=== PATIENT | male | born 1950 | race Caucasian/White ===

== ENCOUNTER 2023-02-26 18:42 | Emergency (ER) | payer MEDICARE, OTHER ==
[~2023-02-26] VITALS: Ht 190.5 cm; Wt 85.7 kg
[~2023-02-26 18:42] MED LIST: AMIODARONE HCL200 MG GT; ASPIRIN81 MG GT; FOSFOMYCIN TROME3 GM; HYDROCODON-ACE1 EA12 GT; KEPPRA100 MG/1 M GT; METHOCARBAMOL500 MG GT; TRAZODONE HCL50 MG GT; TYLENOL325 MG GT
[2023-02-26 19:14] VITALS: O2SAT 100
== END 2023-02-26 23:15 | disposition home or self-care (01) ==
LOC: ER 18:53
DX: Z46.6 Encounter for fitting and adjustment of urinary device (principal); R33.9 Retention of urine, unspecified; E11.9 Type 2 diabetes mellitus without complications; J44.9 Chronic obstructive pulmonary disease, unspecified; I50.9 Heart failure, unspecified; G40.909 Epilepsy, unspecified, not intractable, without status epilepticus; F32.A Depression, unspecified; K21.9 Gastro-esophageal reflux disease without esophagitis; Z86.73 Personal history of transient ischemic attack (TIA), and cerebral infarction without residual deficits
CPT/HCPCS: 87086; 87186; 99283

== ENCOUNTER 2023-06-20 17:26 | Emergency (ER) | payer MEDICARE ==
[~2023-06-20] VITALS: Ht 190.5 cm; Wt 85.7 kg
[2023-06-20] MEDS ORDERED: CEFDINIR250 MG/5 M PO (18:03)
[2023-06-20] MEDS ORDERED: CIPRO500 MG/5 M PO (18:04)
[2023-06-20] MEDS ORDERED: OXYBUTYNIN5 MG/5 ML PEG (18:05)
[2023-06-20] MEDS ORDERED: CIPRO500 MG/5 M PEG (18:06)
[2023-06-20] MEDS ORDERED: CEFDINIR250 MG/5 M PEG (18:06)
[2023-06-20 20:12] VITALS: BP 102/75; PULSE 79; RESP 19; TEMP 98
[2023-06-20 20:34] VITALS: O2SAT 94
== END 2023-06-20 20:51 ==
LOC: ER 17:33
DX: T83.89XA Other specified complication of genitourinary prosthetic devices, implants and grafts, initial encounter (principal); N39.0 Urinary tract infection, site not specified; E11.9 Type 2 diabetes mellitus without complications; J44.9 Chronic obstructive pulmonary disease, unspecified; I50.9 Heart failure, unspecified; G40.909 Epilepsy, unspecified, not intractable, without status epilepticus; K21.9 Gastro-esophageal reflux disease without esophagitis; F32.A Depression, unspecified; I69.322 Dysarthria following cerebral infarction; I69.391 Dysphagia following cerebral infarction
CPT/HCPCS: 99282

== ENCOUNTER 2023-11-28 19:04 | Emergency (ER) | payer MEDICARE, OTHER ==
[~2023-11-28] VITALS: Ht 190.5 cm; Wt 85.7 kg
[~2023-11-28 19:04] MED LIST changes: +CEFDINIR250 MG/5 M PEG; +CEFDINIR250 MG/5 M PO; +CIPRO500 MG/5 M PEG; +CIPRO500 MG/5 M PO; +OXYBUTYNIN5 MG/5 ML PEG
[2023-11-28 19:09] VITALS: PULSE 86; RESP 15; TEMP 97.8
[2023-11-28 21:05] VITALS: BP 110/85; PULSE 78; RESP 16; O2SAT 96
== END 2023-11-28 20:50 | disposition home or self-care (01) ==
LOC: ER 19:15
DX: Z46.6 Encounter for fitting and adjustment of urinary device (principal); R31.9 Hematuria, unspecified; R62.7 Adult failure to thrive; J44.9 Chronic obstructive pulmonary disease, unspecified; I50.9 Heart failure, unspecified; G40.909 Epilepsy, unspecified, not intractable, without status epilepticus; K21.9 Gastro-esophageal reflux disease without esophagitis; F32.A Depression, unspecified; N31.8 Other neuromuscular dysfunction of bladder; Z86.73 Personal history of transient ischemic attack (TIA), and cerebral infarction without residual deficits
CPT/HCPCS: 99282

== ENCOUNTER 2023-12-02 21:35 | Inpatient (IN) | payer MEDICARE, OTHER ==
[~2023-12-02] VITALS: Ht 190.5 cm; Wt 85.7 kg
[2023-12-02 22:03] VITALS: PULSE 71; RESP 18; O2SAT 98
[2023-12-02 22:06] VITALS: PULSE 82; RESP 20; TEMP 98.7
[2023-12-02 22:24] LABS: BASOPHILS # (AUTO) 0.1 (0.0-0.1); BASOPHILS % 0.5 % (0.0-1.0); EOSINOPHILS # (AUTO) 0.3 (0.0-0.4); EOSINOPHILS % 2.5 % (0.0-6.0); HEMATOCRIT 45.5 % (38.2-49.6); HEMOGLOBIN 14.3 g/dL (14.0-18.0); LYMPHOCYTES # (AUTO) 3.1 (1.0-3.2); LYMPHOCYTES % 30.4 % (18.0-39.1); MEAN CORPUSCULAR HEMOGLOBIN 31.7 pg (28-32); MEAN CORPUSCULAR HGB CONC 31.4 g/dL (31-35); MEAN CORPUSCULAR VOLUME 100.9 fL (81-99); MONOCYTES # (AUTO) 0.7 (0.2-0.8); MONOCYTES % 7.2 % (4.4-11.3); NEUTROPHILS % 59.2 % (38.7-80.0); PLATELET COUNT 250 x10e3/uL (140-360); RED BLOOD COUNT 4.51 x10e6/uL (4.3-5.7); RED CELL DISTRIBUTION WIDTH 13.4 % (11.7-14.4); WHITE BLOOD COUNT 10.08 x10e3/uL (4.8-10.8)
[2023-12-02] MEDS ORDERED: ONDANSETRON HCL INJ 2MG/ML 2ML 2 MG/ML VIAL IV PRN (22:30)
[2023-12-02] MEDS ORDERED: DEXTROSE 50% SYRINGE 50 ML IV PRN (22:30)
[2023-12-02 22:36] LABS: ANION GAP 11.5 mmol/L (8-16); CALCIUM 9.8 mg/dL (8.4-10.2); CREATININE, SERUM 0.68 mg/dL (0.72-1.25); POTASSIUM 4.5 mmol/L (3.5-5.1)
[2023-12-02 23:26] VITALS: BP 117/78; PULSE 64; RESP 18; TEMP 99.2; O2SAT 99
[2023-12-03] VITALS (9 sets, daily range): BP systolic 109–124; BP diastolic 54–78; PULSE 63–78; RESP 18–20; TEMP 97.5–99.2; O2SAT 95–100
[2023-12-03] MEDS: SODIUM CHLORIDE 0.9% 1000ML 1,000 ML IV ONE (00:03)
[2023-12-03] MEDS ORDERED: IPRATROPIU0.2 MG/1 M INH (01:04)
[2023-12-03] MEDS ORDERED: ONDANSETRON ODT4 MG GT (01:04)
[2023-12-03] MEDS ORDERED: POLYETHYLENE GL17 GM GT (01:04)
[2023-12-03] MEDS ORDERED: FAMOTIDINE20 MG GT (01:04)
[2023-12-03] MEDS ORDERED: NEURONTIN100 MG GT (01:04)
[2023-12-03] MEDS ORDERED: PHENAZOPYRIDIN100 MG PO (01:04)
[2023-12-03] MEDS ORDERED: FUROSEMIDE40 MG GT (01:04)
[2023-12-03] MEDS: INSULIN REGULAR, HUMAN 100 UNIT/1 ML SQ SCH (07:30)
[2023-12-03] MEDS: POLYETHYLENE GLYCOL 3350 17 GM PACK GT SCH (09:00)
[2023-12-03] MEDS ORDERED: FAMOTIDINE 20 MG TAB GT SCH (09:00)
[2023-12-03] MEDS ORDERED: LEVETIRACETAM ORAL SOLUTION 500 MG/5 ML SOLN PEG SCH (09:00)
[2023-12-03] MEDS ORDERED: ONDANSETRON HCL 4 MG ORAL DISINTEGRATING TAB GT PRN (09:00)
[2023-12-03] MEDS: GABAPENTIN 100 MG CAP GT SCH (09:00)
[2023-12-03] MEDS ORDERED: ACETAMINOPHEN 325 MG TAB GT PRN (09:00)
[2023-12-03] MEDS ORDERED: HYDRALAZINE HCL 20 MG/ML VIAL IV PRN (09:30)
[2023-12-03] MEDS: LEVETIRACETAM 500MG/5ML VIAL 500 MG in SODIUM CHLORIDE 0.9% 100 ML IV SCH (10:22)
[2023-12-03 10:23] LABS: INR 0.94; PROTHROMBIN TIME 13.1 seconds (11.9-14.5)
[2023-12-03] MEDS ORDERED: SODIUM CHLORIDE 0.9% 250ML 250 ML ONE (10:59)
[2023-12-03] MEDS ORDERED: FENTANYL CITRATE/PF 100MCG/2 ML INJ ONE (10:59)
[2023-12-03] MEDS ORDERED: MIDAZOLAM HCL 2 MG/2 ML VIAL ONE (10:59)
[2023-12-03 13:33] LABS: BILIRUBIN,URINE NEGATIVE (NEGATIVE); CLARITY,URINE CLOUDY (CLEAR); COLOR,URINE YELLOW (YELLOW); GLUCOSE, URINE NEGATIVE (NEGATIVE); KETONES,URINE NEGATIVE (NEGATIVE); LEUKOCYTE ESTERASE ,URINE TRACE (NEGATIVE); NITRITE,URINE NEGATIVE (NEGATIVE); PH,URINE 7.5 (5 - 7); PROTEIN,URINE DIPSTICK 2+ (NEGATIVE); URINE UROBILINOGEN 0.2 mg/dL (0.2 - 1)
[2023-12-03 15:03] LABS: EPITHELIAL CELLS,URINE MODERATE /LPF
[2023-12-03 15:05] LABS: BACTERIA,URINE MODERATE /HPF
[2023-12-03 15:09] LABS: AMORPHOUS SEDIMENT,URINE MODERATE (FEW)
[2023-12-03] MEDS: ACETAMINOPHEN 1000 MG/100 ML IV PRN (20:34)
[2023-12-03] MEDS: METHOCARBAMOL 500 MG TAB GT PRN (20:43)
[2023-12-03] MEDS: TRAZODONE HCL 50 MG TAB GT SCH (20:43)
[2023-12-04] VITALS (11 sets, daily range): BP systolic 95–107; BP diastolic 51–68; PULSE 60–79; RESP 15–21; TEMP 97.6–99.7; O2SAT 86–98
[2023-12-04 05:43] LABS: BASOPHILS # (AUTO) 0.1 (0.0-0.1); BASOPHILS % 0.6 % (0.0-1.0); EOSINOPHILS # (AUTO) 0.3 (0.0-0.4); EOSINOPHILS % 3.7 % (0.0-6.0); HEMATOCRIT 46.2 % (38.2-49.6); LYMPHOCYTES # (AUTO) 3.9 (1.0-3.2); MEAN CORPUSCULAR HEMOGLOBIN 31.7 pg (28-32); MEAN CORPUSCULAR HGB CONC 30.3 g/dL (31-35); MEAN CORPUSCULAR VOLUME 104.5 fL (81-99); MONOCYTES # (AUTO) 0.7 (0.2-0.8); MONOCYTES % 8.3 % (4.4-11.3); NEUTROPHILS # (AUTO) 3.2 (2.1-6.9); NEUTROPHILS % 39.2 % (38.7-80.0); PLATELET COUNT 207 x10e3/uL (140-360); RED BLOOD COUNT 4.42 x10e6/uL (4.3-5.7); RED CELL DISTRIBUTION WIDTH 13.2 % (11.7-14.4); WHITE BLOOD COUNT 8.17 x10e3/uL (4.8-10.8)
[2023-12-04 06:10] LABS: CALCIUM 9.6 mg/dL (8.4-10.2); CREATININE, SERUM 0.59 mg/dL (0.72-1.25)
[2023-12-04] MEDS: ALBUTEROL/IPRATROPIUM 3 ML NEB NEB PRN (19:28)
[2023-12-05] VITALS (9 sets, daily range): BP systolic 106–127; BP diastolic 57–90; PULSE 60–82; RESP 15–20; TEMP 98.1–98.4; O2SAT 92–100
[2023-12-05 06:37] LABS: ANION GAP 11.1 mmol/L (8-16); CREATININE, SERUM 0.54 mg/dL (0.72-1.25); POTASSIUM 4.1 mmol/L (3.5-5.1)
[2023-12-05 06:58] LABS: FOLATE 13.8 ng/mL (7.0-15.4)
[2023-12-05] MEDS: ACETAMINOPHEN 1000 MG/100 ML IV PRN (17:43)
[2023-12-06] VITALS (7 sets, daily range): BP systolic 116–123; BP diastolic 68–76; PULSE 72–82; RESP 16–20; TEMP 97.8–98.6; O2SAT 93–98
== END 2023-12-06 18:37 | disposition home or self-care (01) | DRG 698 ==
LOC: ER 21:45 → ERHOLD 22:20 → MED/SURG3 23:12 → OBSVTOIN 12-04 08:19
PROVIDERS: ADMIT Internal Medicine; ATTEND Internal Medicine
PROC: 0T9B30Z Drainage of Bladder with Drainage Device, Percutaneous Approach (ICD-10-PCS; principal; 2023-12-03)
DX: T83.021A Displacement of indwelling urethral catheter, initial encounter (principal); G82.50 Quadriplegia, unspecified; N39.0 Urinary tract infection, site not specified; I50.9 Heart failure, unspecified; E11.9 Type 2 diabetes mellitus without complications; N31.9 Neuromuscular dysfunction of bladder, unspecified; J44.9 Chronic obstructive pulmonary disease, unspecified; F32.A Depression, unspecified; K21.9 Gastro-esophageal reflux disease without esophagitis; G40.909 Epilepsy, unspecified, not intractable, without status epilepticus; R33.8 Other retention of urine; N39.41 Urge incontinence; N13.9 Obstructive and reflux uropathy, unspecified; Z11.52 Encounter for screening for COVID-19; Y84.6 Urinary catheterization as the cause of abnormal reaction of the patient, or of later complication, without mention of misadventure at the time of the procedure; Z79.82 Long term (current) use of aspirin; Z87.440 Personal history of urinary (tract) infections; Z86.73 Personal history of transient ischemic attack (TIA), and cerebral infarction without residual deficits; Z93.1 Gastrostomy status; Z88.0 Allergy status to penicillin; Z88.8 Allergy status to other drugs, medicaments and biological substances
CPT/HCPCS: 36415; 51102; 74470; 80048; 81001; 82607; 82746; 82948; 85025; 85610; 87086; 94799; 99252; 99284; C1769; G0378; J2250; J2470; J7030; J7050; U0002

== ENCOUNTER 2023-12-27 14:29 | Emergency (ER) | payer MEDICARE ==
[~2023-12-27] VITALS: Ht 190.5 cm; Wt 85.7 kg
[~2023-12-27 14:29] MED LIST changes: +FAMOTIDINE20 MG GT; +FUROSEMIDE40 MG GT; +IPRATROPIU0.2 MG/1 M INH; +NEURONTIN100 MG GT; +ONDANSETRON ODT4 MG GT; +PHENAZOPYRIDIN100 MG PO; +POLYETHYLENE GL17 GM GT
[2023-12-27 14:41] VITALS: TEMP 98.2
[2023-12-27 15:39] VITALS: PULSE 65; RESP 19
[2023-12-27 16:49] VITALS: BP 103/73; PULSE 70; RESP 16; TEMP 98.4; O2SAT 98
== END 2023-12-27 16:52 ==
LOC: ER 14:34
DX: Z46.6 Encounter for fitting and adjustment of urinary device (principal); G82.50 Quadriplegia, unspecified; E11.9 Type 2 diabetes mellitus without complications; J44.9 Chronic obstructive pulmonary disease, unspecified; I50.9 Heart failure, unspecified; G40.909 Epilepsy, unspecified, not intractable, without status epilepticus; R13.10 Dysphagia, unspecified; F32.A Depression, unspecified; K21.9 Gastro-esophageal reflux disease without esophagitis; N31.9 Neuromuscular dysfunction of bladder, unspecified; Z86.73 Personal history of transient ischemic attack (TIA), and cerebral infarction without residual deficits
CPT/HCPCS: 51700; 99285

== ENCOUNTER 2024-01-11 16:56 | Emergency (ER) | payer MEDICARE, OTHER ==
[~2024-01-11] VITALS: Ht 190.5 cm; Wt 85.7 kg
[2024-01-11 17:41] VITALS: TEMP 99.5
[2024-01-11 21:15] VITALS: PULSE 78; RESP 17
[2024-01-11 21:37] VITALS: BP 128/67; O2SAT 95
== END 2024-01-11 21:39 | disposition home or self-care (01) ==
LOC: ER 17:05
DX: Z46.6 Encounter for fitting and adjustment of urinary device (principal); E11.9 Type 2 diabetes mellitus without complications; J44.9 Chronic obstructive pulmonary disease, unspecified; I50.9 Heart failure, unspecified; G40.909 Epilepsy, unspecified, not intractable, without status epilepticus; K21.9 Gastro-esophageal reflux disease without esophagitis; G82.50 Quadriplegia, unspecified; F32.A Depression, unspecified; Z86.73 Personal history of transient ischemic attack (TIA), and cerebral infarction without residual deficits
CPT/HCPCS: 99283

== ENCOUNTER 2024-01-20 18:08 | Emergency (ER) | payer MEDICARE, OTHER ==
[~2024-01-20] VITALS: Ht 190.5 cm; Wt 85.7 kg
[2024-01-20 18:53] VITALS: TEMP 98
[2024-01-20 21:32] VITALS: PULSE 80; RESP 18; O2SAT 97
== END 2024-01-20 21:40 | disposition home or self-care (01) ==
LOC: ER 18:20
DX: Z46.6 Encounter for fitting and adjustment of urinary device (principal); Z99.81 Dependence on supplemental oxygen; G82.50 Quadriplegia, unspecified; E11.9 Type 2 diabetes mellitus without complications; J44.9 Chronic obstructive pulmonary disease, unspecified; I50.9 Heart failure, unspecified; G40.909 Epilepsy, unspecified, not intractable, without status epilepticus; R62.7 Adult failure to thrive; K21.9 Gastro-esophageal reflux disease without esophagitis; Z86.73 Personal history of transient ischemic attack (TIA), and cerebral infarction without residual deficits
CPT/HCPCS: 87086; 87186; 99283

== ENCOUNTER 2024-01-24 13:01 | Emergency (ER) | payer MEDICARE ==
[~2024-01-24] VITALS: Ht 190.5 cm; Wt 85.7 kg
[2024-01-24 13:23] VITALS: PULSE 78; RESP 16; TEMP 98.3; O2SAT 99
[2024-01-24] MEDS ORDERED: DIATRIZOATE MEGL/DIATRIZOA SOD 30 ML BTL PO ONE (17:12)
== END 2024-01-24 18:18 ==
LOC: ER 13:13
DX: Z43.1 Encounter for attention to gastrostomy (principal); E11.9 Type 2 diabetes mellitus without complications; J44.9 Chronic obstructive pulmonary disease, unspecified; I50.9 Heart failure, unspecified; G40.909 Epilepsy, unspecified, not intractable, without status epilepticus; K21.9 Gastro-esophageal reflux disease without esophagitis; F32.A Depression, unspecified; R13.10 Dysphagia, unspecified; R62.7 Adult failure to thrive; G82.50 Quadriplegia, unspecified; Z86.73 Personal history of transient ischemic attack (TIA), and cerebral infarction without residual deficits
CPT/HCPCS: 43762; 74018; 99283; Q9963

== ENCOUNTER 2024-01-24 21:40 | Emergency (ER) | payer MEDICARE, OTHER ==
[~2024-01-24] VITALS: Ht 190.5 cm; Wt 85.7 kg
[2024-01-24 23:49] VITALS: RESP 22; TEMP 98.5
[2024-01-25 02:15] VITALS: PULSE 78
[2024-01-25 02:44] VITALS: BP 129/73; O2SAT 97
== END 2024-01-25 02:30 | disposition home or self-care (01) ==
LOC: ER 01-25 00:12
DX: Z43.1 Encounter for attention to gastrostomy (principal); E11.9 Type 2 diabetes mellitus without complications; J44.9 Chronic obstructive pulmonary disease, unspecified; I50.9 Heart failure, unspecified; G40.909 Epilepsy, unspecified, not intractable, without status epilepticus; K21.9 Gastro-esophageal reflux disease without esophagitis; F32.A Depression, unspecified; R13.10 Dysphagia, unspecified; R62.7 Adult failure to thrive; G82.50 Quadriplegia, unspecified; Z86.73 Personal history of transient ischemic attack (TIA), and cerebral infarction without residual deficits
CPT/HCPCS: 99283

== ENCOUNTER 2024-01-27 13:41 | Emergency (ER) | payer MEDICARE ==
[~2024-01-27] VITALS: Ht 190.5 cm; Wt 85.7 kg
[2024-01-27 14:08] VITALS: TEMP 98.1
[2024-01-27] MEDS ORDERED: LIDOCAINE HCL 1% LOCAL INJ 20 ML VIAL ONE (15:34)
[2024-01-27] MEDS ORDERED: IOPAMIDOL 370 MG/ML 100 ML INFUS..BTL INJ ONE (15:34)
[2024-01-27 16:11] VITALS: PULSE 65; RESP 16
[2024-01-27 17:23] VITALS: BP 135/83; PULSE 73; RESP 16; O2SAT 96
== END 2024-01-27 17:19 ==
LOC: ER 14:31
DX: Z43.1 Encounter for attention to gastrostomy (principal); E11.9 Type 2 diabetes mellitus without complications; J44.9 Chronic obstructive pulmonary disease, unspecified; I50.9 Heart failure, unspecified; G40.909 Epilepsy, unspecified, not intractable, without status epilepticus; K21.9 Gastro-esophageal reflux disease without esophagitis; R62.7 Adult failure to thrive; F32.A Depression, unspecified; G82.50 Quadriplegia, unspecified; Z86.73 Personal history of transient ischemic attack (TIA), and cerebral infarction without residual deficits
CPT/HCPCS: 49450; 74470; 99283; J2003; Q9967